=== PATIENT | male | born 1960 | race Caucasian/White ===

== ENCOUNTER → 2023-04-09 08:55 | Outpatient (CLI) | payer OTHER, SELFPAY ==
--- NOTE | 2023-04-09 | DI.MRI.S_ITS ---
PROCEDURE: MR SHOULDER LT WO CON INDICATIONS: ROTATOR CUFF SYNDROME TECHNIQUE: Noncontrast oblique coronal T2 fast spin echo with fat saturation, oblique sagittal T1 spin echo and T2 fast spin echo with fat saturation, axial T1 spin echo and T2 fast spin echo with fat saturation through the shoulder. COMPARISON: [facility], MR, SHOULDER WITHOUT CONTRAST, 08/23/2014, 17:38. FINDINGS: Image quality: Excellent. Rotator cuff: Low to moderate grade articular and bursal surface partial thickness tear involving distal supraspinatus at its insertion on the humeral head is seen extending to musculotendinous junction. Low-grade articular surface partial-thickness tear involving distal infraspinatus at its insertion on the humeral head is seen. Low-grade intrasubstance partial-thickness tear is also noted in distal subscapularis. No full-thickness rotator cuff tendon rupture. Sagittal images demonstrate no significant rotator cuff muscle atrophy. Bones and bursae: No bone marrow contusions or fractures. Moderate acromioclavicular joint osteoarthritic changes are seen with joint space narrowing and downward osteophyte formation depressing the musculotendinous junction of supraspinatus. The acromion demonstrates conventional anatomy, without an os acromiale. Small amount of joint effusion and subacromial subdeltoid bursal fluid is seen. Capsule and soft tissues: There is fraying of superior anterior labrum with T2 hyperintense signal at 12 to 1 o'clock position suggestive of subtle superior anterior labral tear. Similar fraying of anterior inferior labrum and T2 hyperintense signal at 5 to 6 o'clock position is also seen. The long head of the biceps tendon is thickened. The rotator interval appears normal, without fibrosis. The coracohumeral ligament is normal in thickness. IMPRESSION: 1. Low to moderate grade articular and bursal surface partial thickness tear involving distal supraspinatus at its insertion on the humeral head extending to musculotendinous junction. Low-grade articular surface partial-thickness tear involving distal infraspinatus. Low-grade intrasubstance partial-thickness tear involving distal subscapularis. No full-thickness rotator cuff tendon rupture. 2. Moderate acromioclavicular joint osteoarthritis. No fracture or dislocation. Small amount of joint effusion and subacromial subdeltoid bursal fluid, no gross loose bodies. 3. Suggestion of subtle superior anterior labral tear at 12 to 1 o'clock position and subtle anterior inferior labral tear at 5 to 6 o'clock position. 4. Proximal long head of biceps tendinosis. Dictated by: Eliazar Neville M.D. on 04/11/2023 at 11:26 Approved by: Eliazar Neville M.D. on 04/11/2023 at 11:37
== END ==
PROVIDERS: Referring Provider Orthopaedic Surgery; Visit Provider Orthopaedic Surgery
DX: M75.112 Incomplete rotator cuff tear or rupture of left shoulder, not specified as traumatic (principal); M19.012 Primary osteoarthritis, left shoulder; M25.412 Effusion, left shoulder
CPT/HCPCS: 73221